=== PATIENT | female | born 1965 | race Caucasian/White ===

== ENCOUNTER 2017-04-14 15:31 | Emergency (ER) | payer OTHER ==
[~2017-04-14] VITALS: Ht 162.6 cm; Wt 112.2 kg
[~2017-04-14 15:31] MED LIST: ALTACE10 MG PO; ALTACE5 MG PO; CIPRO500 MG PO; CLINDAMYCIN HC150 MG PO; COMBIVIR1 TABLET PO; DOXYCYCLINE HY100 MG PO; DULERA 200 MCG/13 GM IH; KALETRA 100-251 EACH PO; MOTRIN800 MG PO; NO HOME MEDS; PEN-VEE K,VEET500 MG PO; PREDNISONE10 MG PO; PREDNISONE20 MG PO; PROAIR HFA8.5 GM IH; PROVENTIL HFA6.7 GM IH; PROVENTIL,2.5 MG/3 M IH; ST. JOSEPH ASPI81 MG PO; TRUVADA1 TABLET PO; ZITHROMAX250 MG PO; ZOLOFT100 MG PO; ZOLOFT50 M1 GT
[2017-04-14 16:11] LABS: HEMATOCRIT 41.3 % (36.0-46.0); HEMOGLOBIN 13.8 G/DL (11.9-15.5); MCH 29.9 PG (29.0-34.0); MCHC 33.4 G/DL (30.0-36.0); MCV 89.4 FL (83-99); PLATELET COUNT 259 K/uL (156-360); RBC DIS.WIDTH-CV 14.3 % (11.8-14.6); RBC DIS.WIDTH-SD 46.8 % (39-53); RED BLOOD COUNT 4.62 M/uL (3.80-5.20); WHITE BLOOD COUNT 12.8 K/uL (4.1-10.2)
[2017-04-14 16:46] LABS: CHLORIDE 108 MEQ/L (99-109); CREATININE 0.7 MG/DL (0.6-1.3); GFR ESTIMATE (CALCULATED) > 59 mL/min/; GLUCOSE 110 mg/dL (70-99); POTASSIUM 3.6 MEQ/L (3.7-5.4); SODIUM 142 MEQ/L (136-147); UREA NITROGEN (BUN) 17 mg/dL (9-23)
[2017-04-14 17:17] LABS: THYROTROPIN (TSH) 2.5 MIU/L (0.4-5.5)
[2017-04-14] MEDS ORDERED: CHERATUSSIN AC473 ML PO (18:28)
[2017-04-14] MEDS ORDERED: TESSALON PERLE100 MG PO (18:28)
[2017-04-14] MEDS ORDERED: PREDNISONE20 MG PO (18:28)
[2017-04-14 18:53] VITALS: BP 157/99
== END 2017-04-14 18:54 | disposition home or self-care (01) ==
LOC: EME 15:31
PROVIDERS: Nurse Practitioner Family
DX: J45.901 Unspecified asthma with (acute) exacerbation (principal); I10 Essential (primary) hypertension; F41.9 Anxiety disorder, unspecified
CPT/HCPCS: 71046; 80048; 84439; 84443; 85027; 93005; 94644; 99281; 99284; J3475; J7030